=== PATIENT | female | born 1960 | race American Indian/Alaskan Native ===

== ENCOUNTER 2021-12-10 08:36 | Day surgery (SDC) | payer BC, MEDICAID ==
[~2021-12-10 08:36] MED LIST: SODIUM CHLORIDE 0.9% 1000 ML 1,000 ML IV SCH
--- NOTE | 2021-12-10 09:55 | Anesthesia Consultation ---
Anesthesia Consult and Med Hx Date of service: 12/10/21 - Airway Anesthetic Teeth Evaluation: Dentures (upper), Partials (lower) ROM Head & Neck: Adequate Mental/Hyoid Distance: Adequate Mallampati Class: Class III Intubation Access Assessment: Possibly Difficult - Pre-Operative Health Status ASA Pre-Surgery Classification: ASA4 Proposed Anesthetic Plan: MAC - Pulmonary Hx Smoking: Yes (former smoker) SOB: Yes (last wk 2/2 missed HD; now resolved) Home Oxygen Therapy: Yes (2L O2 at night) Hx Sleep Apnea: Yes (+ CPAP) - Cardiovascular System Hx Hypertension: Yes (took antihypertensives this morning) Hx Heart Attack/AMI: No Hx Percutaneous Transluminal Coronary Angioplasty (PTCA): No - Central Nervous System CVA: No - Endocrine Hx End Stage Renal Disease: Yes (last HD 12/08/21; plan for HD after d/c today) Hx Liver Disease: No Hx Insulin Dependent Diabetes: No Hx Non-Insulin Dependent Diabetes: No Hx Thyroid Disease: No - Other Systems Hx Obesity: Yes (BMI 31) - Additional Comments Anesthesia Medical History Comments: No hx anesthetic complications. Follows with cleaning crew member; last seen 2 months ago. Reports normal cardiac eval last year including treadmill ST. No signs/symptoms HF decomsation today.
--- NOTE | 2021-12-10 09:56 | Anesthesia Day of Surgery ---
Anesthesia Day of Surgery - Day of Surgery Patient Examined: Yes Patient H&P Reviewed: Yes Patient is NPO: Yes
[2021-12-10] MEDS ORDERED: propofoL 200 MG/20 ML VIAL IV ONE ×3 (11:30→12:02)
--- NOTE | 2021-12-10 12:20 | Procedure Note ---
Date of procedure: 12/10/21 Pre-op diagnosis: Dyspepsia/ F/H/O Cancer / Colon Polyp Screening Post-op diagnosis: other (Mild to Moderate Erosive Esophagitis/ Gastritis and Gastric Erosion/Duodenitis and Duodenal Erosion/R/O Eosinophilic Esophagitis/ No Colon Polyps/ Extensive diverticular disease/ Minor,Internal Hemorrhoids) Procedure: EGD with biopsy/ Colonoscopy Anesthesia: [facility] [place] Surgeon: TEMITOPE HARRINGTON Estimated blood loss: minimal Pathology: none Specimen disposition: to lab Condition: stable Disposition: same day (Treat with PPI, encourage fiber intake; avoid aspirin and NSAID for 5 days,otherwise resume previous medication and F/U in 1 to 2 weeks ([phone]).)
--- NOTE | 2021-12-10 13:55 | Post Anesthesia Evaluation ---
- Post Anesthesia Evaluation Patient Participated: Yes Airway Patent: Yes Stable Respiratory Function: Yes Nausea/Vomiting: No Temp > 96.8F: Yes Pain Manageable: Yes Adequeate Hydration: Yes Anesthesia Complications: No
--- NOTE | 2021-12-10 15:19 | Operative Report ---
DATE OF SURGERY: 12/10/2021 PROCEDURE PERFORMED: EGD with biopsy. INDICATIONS: This is a 61-year-old -Turk[place] female with an underlying history of end-stage renal disease and hypertension. The patient is likely to have a kidney transplant. She has a strong family history of cancer. The patient's sister had stomach cancer and another sister had breast cancer and brother had lung cancer. EGD was done to make sure there was not any significant upper GI pathology present. DESCRIPTION OF PROCEDURE: Procedure was done after getting informed consent with MAC anesthesia. The instrument was passed through the hypopharynx into the esophagus, which showed [id number] distal erosive esophagitis. Biopsy was done from the distal esophagus to assess for the severity of the erosive esophagitis as well as from the mid esophagus to rule out for eosinophilic esophagitis. The stomach showed gastric erosion and gastritis, most pronounced in the gastric antrum. The pylorus was patent. The duodenum in the bulb showed duodenal erosion as well as duodenitis. Additional biopsy was done from the gastric antrum, gastric body and angular incisura to rule out for H. pylori and atrophic gastritis. There was minimal bleeding from the biopsy sites with no complications. ASSESSMENT: Dyspepsia, family history of cancer. The patient's one sister had stomach cancer and another had breast cancer. Mild to moderate distal erosive esophagitis, rule out eosinophilic esophagitis, gastric erosion, gastritis, duodenal erosion, duodenitis. PLAN: To have the patient avoid aspirin and aspirin-related products for the next few days, otherwise resume previous medication. The patient will be treated with PPI. Colonoscopy will be done as part of colon polyp screening since the patient is to go for a kidney transplant and have the patient follow up in the office in 1-2 weeks' time. Procedure was done in the GI lab with assistance of the GI lab team, which included the GI nurse, the circuit board repair technician and with the assistance of anesthesia. TID: [id number] RECEIPT: [id number] ALBINA/KEVAN
--- NOTE | 2021-12-10 15:25 | Operative Report ---
DATE OF SURGERY: 12/10/2021 PROCEDURE: Colonoscopy. INDICATIONS: This is a 61-year-old -Y[place] female with an underlying history of end-stage renal disease and hypertension. She is to possibly have a kidney transplant done. EGD done prior to the colonoscopy showed [id number] distal erosive esophagitis as well as gastric erosion, gastritis, duodenal erosion and duodenitis. Colonoscopy was done to make sure there was not any significant lower GI pathology. The patient has a strong family history of cancer. One of her sisters had stomach cancer and mother had breast cancer. Initial rectal examination was unremarkable. DESCRIPTION OF PROCEDURE: Instrument was passed through the rectum onto the cecum, which was identified with ileocecal valve and appendiceal orifice. Visualization was fair to good. The scope was withdrawn to the hepatic flexure and reintroduced. There were extensive diverticula noted in the proximal, transverse as well as in the left colon. No colon polyps were noted. No biopsies were done and there was no bleeding associated with the procedure and the rectum showed some minor internal hemorrhoid on the retroverted view. ASSESSMENT: Colon polyp screening, no colon polyps noted. The patient has a strong family history of cancer; extensive diverticular disease noted throughout the colon. Minor internal hemorrhoid. PLAN: To encourage the patient to take fiber supplements, avoid aspirin and aspirin-related products for the next few days because the patient had some biopsies done during the EGD. Treat the patient with PPI and otherwise resume previous medication and follow up in the office in 1-2 weeks' time. Procedure was done in the GI lab with assistance of the GI lab team, which included the GI nurse, the tissue recovery technician and with assistance of anesthesia. TID: [id number] RECEIPT: [id number] ALBINA/CASTRO
[2021-12-10 15:58] VITALS: BP 164/75
== END 2021-12-10 12:45 | disposition home or self-care (01) ==
LOC: GIO 08:36
DX: Z12.11 Encounter for screening for malignant neoplasm of colon (principal); R10.13 Epigastric pain; K29.80 Duodenitis without bleeding; K29.70 Gastritis, unspecified, without bleeding; K57.30 Diverticulosis of large intestine without perforation or abscess without bleeding; K31.89 Other diseases of stomach and duodenum; K64.8 Other hemorrhoids; E66.9 Obesity, unspecified; I12.0 Hypertensive chronic kidney disease with stage 5 chronic kidney disease or end stage renal disease; N18.6 End stage renal disease; G47.33 Obstructive sleep apnea (adult) (pediatric); Z80.0 Family history of malignant neoplasm of digestive organs; Z99.2 Dependence on renal dialysis; Z68.31 Body mass index [BMI] 31.0-31.9, adult; Z80.3 Family history of malignant neoplasm of breast; Z80.1 Family history of malignant neoplasm of trachea, bronchus and lung; Z87.891 Personal history of nicotine dependence; Z79.899 Other long term (current) drug therapy
CPT/HCPCS: 43239; 45378; 88305; J2704; J7030; 88342